=== PATIENT | male | born 1990 | race Caucasian/White ===

== ENCOUNTER → 2024-03-03 | Day surgery (SDC) | payer OTHER ==
[~2024-03-03] VITALS: Ht 172.7 cm; Wt 115.7 kg
[~2024-03-03] MED LIST: ALLO100T PO; BUPIVACAINE HCL/PF 0.5% (5MG/ML) 10ML ONE; CEFAZOLIN SODIUM 1000MG/VIAL ONE; FENTANYL CITRATE/PF 50MCG/ML 2ML VIAL ONE; GLYCOPYRROLATE 0.2 MG/ML 2ML VIAL ONE; HYDRALAZINE 20MG/ML VIAL IV PRN; LABETALOL 5MG/ML 20ML VIAL IV ONE; MIDAZOLAM HCL 2 MG/2 ML VIAL ONE; NEOSTIGMINE METHYLSULFATE 1MG/ML 10 ML VIAL ONE; ONDANSETRON HCL 4MG/2ML INJ ONE; PROPOFOL 200MG/20ML VIAL IV ONE; ROCURONIUM BROMIDE 10MG/ML VIAL 5ML IV ONE; SKIN ADHESIVE 0.7 GM EA TOP ONE; SUCCINYLCHOLINE CHLORIDE 200MG/10ML IV ONE; SUGAMMADEX SODIUM 200MG/2ML VIAL IV ONE
[2024-03-03] MEDS: LACTATED RINGERS 1,000 ML IV SCH (08:42)
[2024-03-03] MEDS: HYDROMORPHONE HCL/PF 1MG/ML INJ IV PRN (10:58)
[2024-03-03] MEDS: ONDANSETRON HCL 4MG/2ML INJ IV PRN (11:02)
[2024-03-03 11:48] VITALS: BP 141/91; PULSE 79; RESP 18
== END | disposition home or self-care (01) ==
LOC: OR 06:24
PROVIDERS: ATTEND Surgery
DX: K80.10 Calculus of gallbladder with chronic cholecystitis without obstruction (principal); M10.9 Gout, unspecified; Z79.899 Other long term (current) drug therapy; Z98.890 Other specified postprocedural states
CPT/HCPCS: 47562; 88304; J3010; J3490 ×4; J0690; J2250; J2405; J2704; J0330; J1171; J7030; J2710